=== PATIENT | male | born 1940 | race Caucasian/White ===

== ENCOUNTER 2019-12-03 19:08 | Observation (INO) | payer OTHER ==
--- OUTSIDE RECORDS SUMMARY | 2019-12-03 19:15 | XMS REPORT | Clinical Summary ---
:1940 Author Organization [facility] Address [address] [place] [address] Care Team Providers Name Role Phone Lonnie Mcgrath MD Primary Care Provider Allergies No Known Allergies Medications Medication Sig Dispensed Refills Start Date End Date Status losartan (COZAAR) 100 Take 100 mg by 0 Active MG tablet mouth daily. atorvastatin (LIPITOR) Take 40 mg by 0 Active 40 MG tablet mouth daily. allopurinol (ZYLOPRIM) Take 300 mg by 0 Active 300 MG tablet mouth daily. omega-3 acid ethyl Take 1 g by mouth 0 Active esters (LOVAZA) 1 gram 2 (two) times a capsule day. calcium Take 1 tablet by 0 Act reji carbonate-vitamin D3 mouth 2 (two) 500 mg-200 unit per times a day with tablet meals. aspirin (ECOTRIN) 81 MG Take 81 mg by 0 Active enteric coated tablet mouth daily. 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) 11/16/2019 Travel 11/03/2019 Travel 11/03/2019 Orders Only Oncology Lauren Baker MGUS (monocl onal MA gammopathy of u nknown significance) ( Primary Dx) 11/03/2019 Orders Only Oncology Lauren Baker, MGUS (monocl onal MA gammopathy of u nknown significance) ( Primary Dx) 07/29/2019 Travel 05/28/2019 Office Visit Neurology Nettie Flaherty MD Polyneuropat hy (Primary Dx); Foot drop, bila teral 05/18/2019 Office Visit Oncology Radha MGUS (monoclona l Elisha Garner MD gammopathy of unknown significance) ( Primary Dx) 05/16/2019 Telephone Radiology Vilma Benton RN 05/15/2019 Hospital Encounter Radiology Nettie Flaherty MD Polyne uropathy 05/04/2019 Office Visit Neurology Nettie Flaherty MD Polyneuropat hy (Primary Dx); Abnormal SPEP 04/21/2019 Orders Only Neurology Ileana, Elevated blood sugar MICHAEL Landers (Primary Dx) 04/20/2019 Telephone Neurology Hernán Guadarrama MD 04/09/2019 Procedure visit Neurology Nettie Flaherty MD Elevated blood sugar (Primary Dx); Hernán Guadarrama MD Foot drop, b ilateral; Neuropathy; Low vitamin B12 level 03/12/2019 Hospital Encounter Radiology Nettie Flaherty MD 03/11/2019 Office Visit Neurology Nettie Flaherty MD Foot drop, b ilateral (Primary Dx) 01/19/2019 Telephone Orthopedic Surgery Carina Becerril MA 01/01/2019 Office Visit Orthopedic Surgery Bailee Porras ra diculopathy (Primary Dx); Julien Cho MD Low back roni n, unspecified back pain laterality, unspecified chronicity, unspecified whether sciatica present; Lumbar spondylo sis after 12/02/2018 Social History Tobacco Use Types Packs/Day Years Used Date Former Smoker Cigarettes 1 15 Quit: 03/25/18 82 Smokeless Tobacco: Never Used Alcohol Use Drinks/Week oz/Week Comments Not Currently Sex Assigned at Date Recorded Not on file Job Start Date Occupation Industry Not on file Not on file Not on file Travel History Travel Start Travel End No recent travel history available. COVID-19 Exposure Response Date Recorded In the last month, have you been in contact Unable to assess 11/16/2019 2:14 PM CDT with someone who was confirmed or suspected to have Coronavirus / COVID-19? Last Filed Vital Signs Vital Sign Reading Time Taken Comments Blood Pressure 158/60 05/18/2019 11:00 AM [employer] Pulse 58 05/18/2019 11:00 AM [employer] Temperature 36.6 C (97.8 F) 05/18/2019 11:00 AM [employer] Respiratory Rate 14 05/28/2019 1:47 PM [employer] Oxygen Saturation 99% 05/18/2019 11:00 AM [employer] Inhaled Oxygen Concentration - - Weight 120 kg (264 lb 9.6 oz) 05/18/2019 11:00 AM [employer] Height 177.8 cm (5' 10") 05/18/2019 11:00 AM [employer] Body Mass Index 37.97 05/18/2019 11:00 AM [employer] Plan of Treatment Date Type Specialty Care Team Description 12/04/2019 Telephone Consult Neurology Nettie Flaherty M D [address] [facility] [address] [place], [place] [address] 05/19/2020 Telephone [place] [address] [facility] [address] [place], [place] [address] Health Maintenance Due Date Last Done Comments SHINGLES VACCINES (#1) 01/11/1992 65+ PNEUMOCOCCAL VACCINE (1 of 2 - PCV13) 2007 INFLUENZA VACCINE 12/24/2019 Procedures Procedure Name Priority Date/Time Associated Diagnosis Comme nts URINE PROTEIN Routine 11/09/2019 11:26 MGUS (monoclonal Result s for this ELECTROPHORESIS, 24 AM CDT gammopathy of unknown procedure are in HOUR significance) the results section. KAPPA LAMBDA FREE LIGHT Routine 11/09/2019 11:18 MGUS (monoclo nal Results for this CHAIN WITH RATIO AM CDT gammopathy of unknown pr ocedure are in significance) the results section. IMMUNOGLOBULIN G, A, M Routine 11/09/2019 11:18 MGUS (monoclon al Results for this AM CDT gammopathy of unknown proced ure are in significance) the results section. COMPREHENSIVE METABOLIC Routine 11/09/2019 11:18 MGUS (monoclo nal Results for this PANEL AM CDT gammopathy of unknown proced ure are in significance) the results section. CBC WITH PLATELET AND Routine 11/09/2019 11:18 MGUS (monoclona l Results for this DIFFERENTIAL AM CDT gammopathy of unknown proced ure are in significance) the results section. URINE PROTEIN Routine 05/20/2019 11:03 MGUS (monoclonal Result s for this ELECTROPHORESIS, 24 AM [employer] gammopathy of unknown procedure are in HOUR significance) the results section. IGAM Routine 05/18/2019 12:25 Results for this PM [employer] procedure are i n the results section. KAPPA LAMBDA FREE LIGHT Routine 05/18/2019 12:25 MGUS (monoclo nal Results for this CHAIN WITH RATIO PM [employer] gammopathy of unknown pr ocedure are in significance) the results section. HC COMPLETE BLD COUNT Routine 05/18/2019 12:25 MGUS (monoclona l Results for this W/AUTO DIFF PM [employer] gammopathy of unknown proced ure are in significance) the results section. IR LUMBAR PUNCTURE Routine 05/15/2019 12:55 Polyneuropathy Res ults for this PM [employer] procedure are i n the results section. CSF CELL COUNT WITH Routine 05/15/2019 12:34 Polyneuropathy Re sults for this DIFFERENTIAL PM [employer] procedure are i n the results section. PROTEIN, CSF Routine 05/15/2019 12:34 Polyneuropathy Results f or this PM [employer] procedure are i n the results section. GLUCOSE LEVEL, CSF Routine 05/15/2019 12:34 Polyneuropathy Res ults for this PM [employer] procedure are i n the results section. VDRL, CSF SCREEN Routine 05/15/2019 12:34 Polyneuropathy Resul ts for this PM [employer] procedure are i n the results section. GRAM STAIN Routine 05/15/2019 12:34 Results for this PM [employer] procedure are i n the results section. CSF CULTURE Routine 05/15/2019 12:34 Polyneuropathy Results f or this PM [employer] procedure are i n the results section. CRYPTOCOCCAL ANTIGEN Routine 05/15/2019 12:34 Polyneuropathy R esults for this SCREEN PM [employer] procedure are i n the results section. FUNGUS CULTURE Routine 05/15/2019 11:34 Polyneuropathy Results for this AM [employer] procedure are i n the results section. AFB CULTURE Routine 05/15/2019 11:34 Polyneuropathy Results f or this AM [employer] procedure are i n the results section. SERUM ELECTROPHORESIS Routine 04/14/2019 9:10 Foot drop , bilateral Results for this AM [employer] Elevated blood s ugar procedure are in Neuropathy the results Low vitamin B12 level sectio n. HOMOCYSTINE, PLASMA Routine 04/14/2019 9:10 Foot drop, bilateral Results for this AM [employer] Elevated blood s ugar procedure are in Neuropathy the results Low vitamin B12 level sectio n. VITAMIN B1 LEVEL Routine 04/14/2019 9:10 Foot drop, dejuan ateral Results for this AM [employer] Elevated blood s ugar procedure are in Neuropathy the results Low vitamin B12 level sectio n. METHYLMALONIC ACID, Routine 04/14/2019 9:10 Foot drop, bilateral Results for this SERUM AM [employer] Elevated blood s ugar procedure are in Neuropathy the results Low vitamin B12 level sectio n. VITAMIN B12 LEVEL Routine 04/14/2019 9:10 Foot drop, bi lateral Results for this AM [employer] Elevated blood s ugar procedure are in Neuropathy the results Low vitamin B12 level sectio n. HEMOGLOBIN A1C Routine 04/14/2019 9:10 Foot drop, bila teral Results for this AM [employer] Elevated blood s ugar procedure are in Neuropathy the results Low vitamin B12 level sectio n. XR LUMBAR SPINE Routine 01/01/2019 1:33 Low back pain, Result s for this COMPLETE 4+ VW PM CDT unspecified back pain proc edure are in laterality, the results unspecified section. chronicity, unspecified whether sciatica present after 12/02/2018 Results Urine protein electrophoresis, 24 hour (11/09/2019 11:26 AM CDT)Only the most recent of2 resultswithin the time period is included. Creatinine, 24 hour 1.40 0.50 - 2.15 [facility] urine g/24 h [facility] NG II Prot/creat ratio, NOTE < OR = 114 [facility] urine mg/g creat [facility] Protein/Creat Ratio NOTE < OR = 0.114 [facility] mg/mg creat [facility] NG [facility] Protein, 24 hour urine NOTE <150 mg/24 h [facility] Comment: [facility] THE PROTEIN VALUE IS LESS THAN 4 MG/DL NG II THEREFORE WE ARE UNABLE TO CALCULATE EXCRETION AND/OR CREATININE RATIO. Albumin, urine Comment: % [facility] NONE [facility] DETECTED NG II [id number], Comment: % [facility] urine NONE [facility] DETECTED NG II [id number], Comment: % [facility] urine NONE [facility] DETECTED NG II Beta globulin, urine Comment: % [facility] NONE [facility] DETECTED NG II Gamma globulin, urine Comment: % [facility] NONE [facility] DETECTED NG II Interpretation [facility] Comment: [facility] NG II Albumin and globulin are below the level of detection by agarose electrophoresis. No abnormal protein bands (Bence-Jerry s proteinuria) detected. Specimen Urine Narrative Performed At [facility] 11/09/2019 FROM [id number] [facility] URINE VOLUME: 1800/24 Resulting Agency Comment Performing Organization Information: Site ID: [id number] Name: [facility] Address: [address] [place] [phone] Director: Dr. Daniel ling Performing Organization Address [facility] Cliniccode Phone Number MICHAEL [facility] [address] [phone] Kell lambda free light chain with ratio (11/09/2019 11:18 AM CDT)Only the most recent of2 resultswithin the time period is included. Kell light 20.5 (H) 3.3 - 19.4 [facility] chain mg/L [facility] ING II Lambda light 13.8 5.7 - 26.3 [facility] chain mg/L [facility] Kell lambda 1.49 0.26 - 1.65 [facility] ratio Comment: [facility] Free kappa/lambda ratio in serum of normal individuals ING II is 0.26-1.65. Excess production of free kappa or lambd a chains can alter this ratio. Monoclonal free light chains are found in serum of patients with multiple myeloma, Waldenstrom's macroglobulinemia, mu-heavy mary ann in disease, primary amyloidosis, light chain deposition disease, monoclonal gammopathy of undetermined significance, and lymphoproliferative disorders. Measurement of free light chain concentration in serum is useful for diagnosis, prognosis, monitoring disease activity and following response to therapy of these disorders. Specimen Blood Narrative Performed At FASTING:NO [facility] COLLECTION KIT GIVEN TO PATIENT. PATIENT ADVISED TO RETURN. URINE VOLUME: NOTV FASTING: NO Resulting Agency Comment Performing Organization Information: Site ID: [id number] Name: [facility] Address: [address] [place] [phone] Director: Dr. Daniel ling Performing Organization Address [facility]/Zipcode Phone Number MICHAEL [facility] Talk[place] [phone] [place] [address] CBC with platelet and differential (11/09/2019 11:18 AM CDT)Only the most recent of2 resultswithin the time period is included. WBC 7.0 3.8 - 10.8 [facility] Thousand/uL [place] RBC 4.72 4.20 - 5.80 [facility] Million/uL [place] HGB 12.0 (L) 13.2 - 17.1 [facility] g/dL [place] HCT 37.9 (L) 38.5 - 50.0 % [facility] [place] MCV 80.3 80.0 - 100.0 fL [facility] [place] MCH 25.4 (L) 27.0 - 33.0 pg [facility] [place] MCHC 31.7 (L) 32.0 - 36.0 [facility] g/dL [place] RDW 13.9 11.0 - 15.0 % [facility] [place] Platelet count 220 140 - 400 [facility] Thousand/uL [place] MPV 9.8 7.5 - 12.5 fL [facility] [employer] [place] Neutrophils, absolute 4,207 1,500 - 7,800 [facility] cells/uL [place] Lymphocytes, absolute 2,121 850 - 3,900 [facility] cells/uL [place] Monocytes, absolute 497 200 - 950 [facility] cells/uL [place] Eosinophils, absolute 126 15 - 500 [facility] cells/uL [place] Basophils, absolute 49 0 - 200 [facility] cells/uL [place] Neutrophils 60.1 % [facility] [place] Lymphocytes 30.3 % [facility] [place] Monocytes 7.1 % [facility] [place] Eosinophils 1.8 % [facility] [place] Basophils + RC 0.7 % [facility] [place] Specimen Blood Narrative Performed At FASTING:NO [facility] COLLECTION KIT GIVEN TO PATIENT. PATIENT ADVISED TO RETURN. URINE VOLUME: NOTV FASTING: NO Resulting Agency Comment Performing Organization Information: Site ID: [id number] [facility]: [facility] Address: [address] [place] [id number] Director: Daniel Walker Performing Organization Address [facility] Cliniccoal Phone Number [employer] [place] [phone] Immunoglobulin G, A, M (11/09/2019 11:18 AM CDT) Pathologist Sig nature IgA 189 70 - 320 mg/dL [facility] IgG 1,890 (H) 600 - 1,540 mg/dL [facility] IgM 50 50 - 300 mg/dL [facility] [place] Specimen Blood Narrative Performed At FASTING:NO [facility] COLLECTION KIT GIVEN TO PATIENT. PATIENT ADVISED TO RETURN. URINE VOLUME: NOTV FASTING: NO Resulting Agency Comment Performing Organization Information: Site ID: [id number] Name: [facility] Address: [address] [place] [id number] Director: Daniel Walker Performing Organization Address [facility] Cliniccode Phone Number [employer] [address] [address] Comprehensive metabolic panel (11/09/2019 11:18 AM CDT) Glucose 122 65 - 139 [facility] Comment: mg/dL [place] Non-fasting reference interval BUN 16 7 - 25 mg/dL [facility] [place] Creatinine 0.87 0.70 - 1.18 [facility] Comment: mg/dL [place] For patients >49 years of age, the reference limit for Creatinine is approximately 13% higher for people identified as -Armenian. EGFR Non-Afr. 83 > OR = 60 [facility] Armenian mL/min/1.73m [place] 2 EGFR 96 > OR = 60 [facility] Armenian mL/min/1.73m [place] 2 BUN/creatinine NOT APPLICABLE 6 - 22 [facility] ratio (calc) [place] Sodium 141 135 - 146 [facility] mmol/L [place] Potassium 4.2 3.5 - 5.3 [facility] mmol/L [place] Chloride 107 98 - 110 [facility] mmol/L [place] CO2 27 20 - 32 [facility] mmol/L [place] Calcium 9.5 8.6 - 10.3 [facility] mg/dL [place] Protein 7.4 6.1 - 8.1 [facility] g/dL [place] Albumin, S 3.9 3.6 - 5.1 [facility] g/dL [place] Globulin, total 3.5 1.9 - 3.7 [facility] g/dL (calc) [place] Albumin/globulin 1.1 1.0 - 2.5 [facility] ratio (calc) [place] Total bilirubin 0.4 0.2 - 1.2 [facility] mg/dL [place] Alkaline 81 35 - 144 U/L [facility] phosphatase [place] AST 15 10 - 35 U/L [facility] [place] ALT 13 9 - 46 U/L [facility] [place] Specimen Blood Narrative Performed At FASTING:NO [facility] COLLECTION KIT GIVEN TO PATIENT. PATIENT ADVISED TO RETURN. URINE VOLUME: NOTV FASTING: NO Resulting Agency Comment Performing Organization Information: Site ID: [id number] Name: [facility] Address: [address] [place] [address] Director: Daniel Walker Performing Organization Address City/State/Zipcode Phone Number MICHAEL [facility] [place] [address] [place] [phone] IGAM (05/18/2019 12:25 PM [employer]ARM [employer]) Pathologist Sig nature IgG 1,826 (H) 700 - 1,600 mg/dL [facility] IgA 208 70 - 400 mg/dL [facility] IgM 51 33 - 255 mg/dL [facility] Specimen Plasma specimen Performing Organization Address City/State/Zipcode Phone Number [facility] DEPARTMENT OF PATHOLOGY AND [address] [place], [place] [address] GENOMIC MEDICINE [facility] [address] [place] [address] IR Lumbar Puncture by Radiology (05/15/2019 12:55 PM [employer]ARM [employer]) Specimen Narrative Performed At EXAMINATION: IR LUMBAR PUNCTURE [facility]IANT CLINICAL HISTORY: 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 Progressive weakness and inability to walk for 5 years . Lower extremity tingling and numbness. COMPARISON: Outside MRI exam from January 20, 2019 [facility] showed multilevel severe canal stenosis with ne rve root compression. FINDINGS: [facility] The patient was prepped in a sterile fashion in the pr one position. 1% Xylocaine was utilized for local anesthesia. Total flu oroscopy time was 0.1 minutes. Total radiation dosage was 3.5 mGy. 2 alberta ges were stored during fluoroscopy to document the level of needle placement. Utilizing fluoroscopic guidance, a 22-gauge spinal nee dle was placed into the subarachnoid space at the L1-2 level since th e cord ended above this level on the MRI exam and every other level showe d prominent narrowing of the subarachnoid space. Approximately 16 mL of cerebrospinal fluid was withdra wn and sent to the laboratory for analysis. There were no complications. The primary surgeon was Dr. Mosquera. There were no assistants. Ther e was no significant blood loss. The patient was sent to the recovery room and then discharged after he met discharge criteria. IMPRESSION: Successful fluoroscopic-guided lumbar puncture to eval uate the patient's progressive lower extremity weakness for 5 years and inability to walk. [facility]-[id number] Procedure Note Interface, Radiology Results Incoming - 05/15/2019 2:37 PM [employer]ARM [employer] EXAMINATION: IR LUMBAR PUNCTURE CLINICAL HISTORY: 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 Progressive weakness and inability to walk for 5 years. Lower extremity tingling and numbness. COMPARISON: Outside MRI exam from 2018 which showed multilevel severe canal stenosis with nerve root compression. FINDINGS: [facility] The patient was prepped in a sterile fas hion in the prone position. 1% Xylocaine was utilized for local anesthesia. Total fluoroscopy time was 0.1 minutes. Total radiation dosage was 3.5 mGy. 2 images were stored during fluoroscopy to document the level of needle placement. Utilizing fluoroscopic guidance, a 22-ga uge spinal needle was placed into the subarachnoid space at the L1-2 level since the cord ended above this level on the MRI exam and every other level showed prominent narrowing of the subarachnoid space. Approximately 16 mL of cerebrospinal flu id was withdrawn and sent to the laboratory for analysis. There were no complications. The primary surgeon was Dr. Mosquera. There were no assistants. There was no significant blood loss. The patient was sent to the recovery room and then discharged after he met discharge criteria. IMPRESSION: Successful fluoroscopic-guided lumbar pu ncture to evaluate the patient's progressive lower extremity weakness for 5 years and inability to walk. [facility]-[id number] Performing Organization Address [facility] Cliniccoal Phone Number [address] [address] Cryptococcal antigen, screen (05/15/2019 12:34 PM [employer]ARM [employer]) Pathologist [facility] Cryptococcal Ag Negative - No Cryptococcus antigen detected. JARROD PEREZ Comment: HOSPITAL Specimen Information Specimen Source: CSF (Spinal Fluid) Specimen Site: Lumbar puncture Specimen Cerebrospinal fluid - Lumbar puncture Performing Organization Address [facility] Phone Number [facility] DEPARTMENT OF PATHOLOGY AND [address] [place] [address] [phone] [address] Gram stain (05/15/2019 12:34 PM [employer]ARM [employer]) Pathologist [facility] Gram stain isolate No WBC's or organisms seen. JARROD PEREZ Comment: HOSPITAL Specimen Information Specimen Source: CSF (Spinal Fluid) Specimen Site: Lumbar puncture Specimen Cerebrospinal fluid - Lumbar puncture Performing Organization Address [facility] Phone Number [facility] DEPARTMENT OF PATHOLOGY AND [address] [place] [address] [phone] [address] CSF culture (05/15/2019 12:34 PM [employer]ARM [employer]) Pathologist [facility] CSF culture No growth after 3 days. [facility] isolate Comment: HOSPITAL Specimen Information Specimen Source: CSF (Spinal Fluid) Specimen Site: Lumbar puncture Specimen Cerebrospinal fluid - Lumbar puncture Performing Organization Address City/[facility]/Zipcode Phone Number [facility] DEPARTMENT OF PATHOLOGY AND [address] [place], [place] [address] [address] CSF cell count with differential (05/15/2019 12:34 PM [employer]ARM [employer]) Pathologist Sig nature Color, CSF Colorless [facility] Appearance, CSF Clear [facility] RBC, CSF 136 (H) 0 - 1 /CMM [facility] WBC, CSF 1 0 - 5 /CMM [facility] CSF mononuclear cell 1/CMM [facility] Specimen Cerebrospinal fluid Performing Organization Address City/[facility] Phone Number [facility] DEPARTMENT OF PATHOLOGY [phone] [place] [address] X [phone] AND [facility] [phone] [place] [address] [place] [address] VDRL, CSF screen (05/15/2019 12:34 PM [employer]ARM [employer]) Pathologist Sig nature VDRL, CSF screen Non-reactive Non-reactive [facility] Specimen Cerebrospinal fluid Performing Organization Address City/[facility]/Zipcode Phone Number [facility] DEPARTMENT OF PATHOLOGY AND [address] [place], [place] [address] [address] Protein, CSF (05/15/2019 12:34 PM [employer]ARM [employer]) Pathologist Sig nature Protein, CSF 42 15 - 45 mg/dL [facility] Specimen Cerebrospinal fluid Performing Organization Address City/[facility]/Zipcode Phone Number [facility] DEPARTMENT OF PATHOLOGY [phone] [place] [address]. [facility] X [phone] AND [facility] [phone] [place] [address] X [phone] [facility] Glucose level, CSF (05/15/2019 12:34 PM [employer]ARM [employer]) Pathologist Sig nature Glucose, CSF 81 (H) 40 - 70 mg/dL [facility] Specimen Cerebrospinal fluid Performing Organization Address City/[facility]/Zipcode Phone Number [facility] DEPARTMENT OF PATHOLOGY [phone] [place] [address] [phone] AND [facility] [address] [facility] [place] [phone] HOSPITAL AFB culture (05/15/2019 11:34 AM FARM CONTRACTOR) AFB culture No growth after 6 weeks of incubation. RENE SHANKS CATHOL[facility] isolate Comment: HOSPITAL Specimen Information Specimen Source: CSF (Spinal Fluid) Specimen Site: Lumbar puncture Specimen Cerebrospinal fluid - Lumbar puncture Performing Organization Address [facility] Phone Number [facility] DEPARTMENT OF PATHOLOGY AND [address] [place] [phone] Fungus culture (05/15/2019 11:34 AM FARM CONTRACTOR) Fungus culture No growth after 4 weeks of incubation. [facility] isolate Comment: HOSPITAL Specimen Information Specimen Source: CSF (Spinal Fluid) Specimen Site: Lumbar puncture Specimen Cerebrospinal fluid - Lumbar puncture Performing Organization Address [facility] Phone Number [facility] DEPARTMENT OF PATHOLOGY AND [address] [place] [phone] Homocystine, plasma (04/14/2019 9:10 AM FARM CONTRACTOR) Homocysteine 7.9 <11.4 umol/L [facility] Comment: [facility] Homocysteine is increased by functional deficiency of G II folate or vitamin B12. Testing for methylmalonic aci d differentiates between these deficiencies. Other cau ses of increased homocysteine include renal failure, folat e antagonists such as methotrexate and phenytoin, and exposure to nitrous oxide. Specimen Blood Narrative Performed At FASTING:YES [facility] FASTING: YES Resulting Agency Comment Performing Organization Information: Site ID: [id number] Name: [facility] Address: [address] [place] [phone] Director: Dr. Daniel ling Performing Organization Address City/[facility] Phone Number [facility] [employer] [address] [place] [address] Methylmalonic acid, serum (04/14/2019 9:10 AM FARM CONTRACTOR) Methylmalonic acid 141 87 - 318 [facility] Comment: nmol/L [facility] This test was developed and its analytical performance characteristics have been determined by [facility]. It has not been cleared or approved by FDA. This assay has been valida haseeb pursuant to the CLIA regulations and is used for clini claudia purposes. Specimen Blood Narrative Performed At FASTING:YES [facility] FASTING: YES Resulting Agency Comment Performing Organization Information: Site ID: [id number] Name: [facility], Address: [address] [place] [id number] Director: Madison Clark MD,PhD,MB A Performing Organization Address City/[facility] Phone Number [employer] [address] [place] [phone] [facility] Vitamin B1 level (04/14/2019 9:10 AM FARM CONTRACTOR) Vitamin B1 27 8 - 30 nmol/L [facility] [employer] Comment: [place] Vitamin supplementation within 24 hours prior to blood draw may affect the accuracy of results. This test was developed and its analytical performance characteristics have been determined by [employer]. It has not been cleared or approved by [facility] FDA. This assay has been validated pursuant to the CLI A regulations and is used for clinical purposes. Specimen Blood Narrative Performed At FASTING:YES [facility] FASTING: YES Resulting Agency Comment Performing Organization Information: Site ID: [id number] Name: [facility] Address: [address] [place] [address] Director: Isaias Barnett M.D., Ph. 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) Protein 7.4 6.1 - 8.1 g/dL [facility] ING II Albumin, S 4.0 3.8 - 4.8 g/dL [facility] Jzfpz-9-qbsvxhlg 0.3 0.2 - 0.3 g/dL [facility] Ktvoi-7-jhosuyxx 0.7 0.5 - 0.9 g/dL [facility] Beta-1 globulin 0.5 0.4 - 0.6 g/dL [facility] Beta-2 globulin 0.3 0.2 - 0.5 g/dL [facility] Gamma, CSF 1.6 0.8 - 1.7 g/dL [facility] Abnormal protein 0.6 (H) NONE DETECTED [facility] band 1 g/dL [facility] ING II Abnormal protein 0.7 (H) NONE DETECTED [facility] band 2 g/dL [facility] ING II Interpretation [facility] Comment: [facility] Evaluation reveals two restricted bands (M-spikes) ING II migrating in the gamma globulin region. Consider immunofixation analysis if indicated. Specimen Blood Narrative Performed At FASTING:YES [facility] FASTING: YES Resulting Agency Comment Performing Organization Information: Site ID: [id number] Name: [facility] Address: [address] [place] [phone] Director: Dr. Daniel ling Performing Organization Address 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 For someone with known diabetes, a value <7% indicates that their diabetes is well controlled and a value greater than or equal to 7% indicates suboptimal control. A1c targets should be individualized based on duration of diabetes, age, comorbid conditions, and other considerations. Currently, no consensus exists regarding use of hemoglobin A1c for diagnosis of diabetes for children. Specimen Blood Narrative Performed At FASTING:YES [facility] FASTING: YES Resulting Agency Comment Performing Organization Information: Site ID: [id number] Name: [facility] Address: [address] [place] [phone] Director: Daniel Walker Performing Organization Address City/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 Sig nature Vitamin B12 559 200 - 1,100 pg/mL [facility] ON Specimen Blood Narrative Performed At FASTING:YES [facility] FASTING: YES Resulting Agency Comment Performing Organization Information: Site ID: DOT Name: [facility] Address: [address] [place] [address] Director: Daniel Walker Performing Organization Address City/State/Zipcode Phone Number MICHAEL [facility] [facility] [place] [address] [place] [address] XR Lumbar Spine Complete 4+ Vw (01/01/2019 1:33 PM CDT) Specimen Narrative Performed At This result has an attachment that is no t available. 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 Bridging osteophytes throughout the thoracolumbar supe rior lumbar spine. 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 No fractures bone erosions. No dynamic instability f lexion-extension. Performing Organization Address City/State/Zipcode Phone Number [facility] [address] [place] [address] after 12/02/2018 Advance Directives For more information, please contact: [phone] Type Date Recorded Patient Rewriter Explanati on Advance Directives, Living Will and Medical Power of [place] Maker
--- OUTSIDE RECORDS SUMMARY | 2019-12-03 19:16 | XMS REPORT | Continuity of Care Document ---
:1940 Author Organization [facility] t Address [address] [place] [address] Care Team Providers Name Role Phone Ramila SEWELL, Lonnie Primary Care Physician Chavez SEWELL, Elisha Garner Attending Clinician Samuel RODRIGUEZ Attending Clinician Unavailable Krystina SEWELL Attending Clinician Serenity LEMON Attending Clinician Unavailable Ileana RODRIGUEZ Attending Clinician Unavailable Chiara SEWELL Attending Clinician Jone RODRIGUEZ Attending Clinician Unavailable Marquis Porras MD Attending Clinician Payers Payer Name Policy Type Policy Number Effective Date Expiration Date S concepcion AETNA xxxxxxxx 2013 [place] MEDICAREAETNA 00:00:00 [employer] MEDICARE HMO/PP[facility] 4-PresentHMO Problems This patient has no known problems. Allergies, Adverse Reactions, Alerts This patient has no known allergies or adverse reactions. Social History Social Habit Start Date Stop Date Quantity Comments Source Sex Assigned At [place] M ethodist Exposure to Unable to assess Jarrod Ortiz SARS-CoV-2 (event) Cigarettes smoked 2019-05-28 2019-05-28 Jarrod Ortiz current (pack per 00:00:00 00:00:00 day) - Reported Cigarette 2019-05-28 2019-05-28 Jarrod Weiner ist pack-years 00:00:00 00:00:00 Alcohol intake 2019-05-28 2019-05-28 Ex-drinker [facility]odist 00:00:00 00:00:00 (finding) History of tobacco 1981-03-25 Current smoker [place] use 00:00:00 Smoking Status Start Date Stop Date Source Former smoker 2019-05-28 00:00:00 2019-05-28 00:00:00 Jarrod Ortiz Medications Ordered Filled Start Stop Current Ordering Indication Dosage Frequency Signature Comments Components Source Medication Medication Date Date Medication? Clinician (SIG) Name Name losartan 2020-0 Yes 100mg QD Take 100 [place] (COZAAR) 3-05 mg by Methodi 100 MG 13:46: mouth st tablet 57 daily. atorvastati 2020-0 Yes 40mg QD Take 40 mg Garay n (LIPITOR) 3-05 by mouth Meth robert 40 MG 13:46: daily. st tablet 57 allopurinol 2020-0 Yes 300mg QD Take 300 [place] (ZYLOPRIM) 3-05 mg by Methodi 300 MG 13:46: mouth st tablet 57 daily. omega-3 2020-0 Yes 1g Q.5D Take 1 g [place] acid ethyl 3-05 by mouth 2 Met hodi esters 13:46: (two) st (LOVAZA) 1 57 times a gram day. capsule calcium 2020-0 Yes 1{tbl} Q.5D Take 1 [place] carbonate-v 3-05 tablet by Met hodi itamin D3 13:46: mouth 2 st 500 mg-200 57 (two) unit per times a tablet day with meals. aspirin 2020-0 Yes 81mg QD Take 81 mg [place] (ECOTRIN) 3-05 by mouth Method i 81 MG 13:46: daily. st enteric 57 coated tablet Vital Signs Vital Name Observation Time Observation Value Comments Source Respiratory rate 2019-05-28 13:47:00 14 /min [place] Systolic blood 2019-05-18 11:00:00 158 mm[Hg] [place] pressure Diastolic blood 2019-05-18 11:00:00 60 mm[Hg] [place] pressure Heart rate 2019-05-18 11:00:00 58 /min Jarrod Ortiz Body temperature 2019-05-18 11:00:00 36.56 Jade Joyce Ortiz Body height 2019-05-18 11:00:00 177.8 cm Jarrod Ortiz Body weight 2019-05-18 11:00:00 120.022 kg Jarrod Ortiz BMI 2019-05-18 11:00:00 37.97 kg/m2 Jarrod Ortiz Oxygen saturation in 2019-05-18 11:00:00 99 /min Jarrod Ortiz Arterial blood by Pulse oximetry Procedures Procedure Date / Time Performing Clinician Source Performed URINE PROTEIN 2019-11-09 11:26:00 Elisha Garcia ELECTROPHORESIS, 24 HOUR CBC WITH PLATELET AND 2019-11-09 11:18:00 Elisha Garcia DIFFERENTIAL COMPREHENSIVE METABOLIC 2019-11-09 11:18:00 Elisha Garcia PANEL IMMUNOGLOBULIN G, A, M 2019-11-09 11:18:00 Elisha Garcia KAPPA LAMBDA FREE LIGHT 2019-11-09 11:18:00 Elisha Garcia CHAIN WITH RATIO URINE PROTEIN 2019-05-20 11:03:00 Elisha Garcia ELECTROPHORESIS, 24 HOUR HC COMPLETE BLD COUNT 2019-05-18 12:25:00 Elisha Garcia W/AUTO DIFF KAPPA LAMBDA FREE LIGHT 2019-05-18 12:25:00 Elisha Garcia CHAIN WITH RATIO IGAM 2019-05-18 12:25:00 Elisha Garcia IR LUMBAR PUNCTURE 2019-05-15 12:55:19 Bg [place] ethodist CRYPTOCOCCAL ANTIGEN 2019-05-15 12:34:00 Bg Mireles SCREEN CSF CULTURE 2019-05-15 12:34:00 Bg Mireles Meth odist GRAM STAIN 2019-05-15 12:34:00 Bg M[place] Meth odist VDRL, CSF SCREEN 2019-05-15 12:34:00 Bg Mireles Met hodzachery GLUCOSE LEVEL, CSF 2019-05-15 12:34:00 Bg [place] ethodist PROTEIN, CSF 2019-05-15 12:34:00 Bg Mireles odzachery CSF CELL COUNT WITH 2019-05-15 12:34:00 Bg Mireles [employer] Witness DIFFERENTIAL AFB CULTURE 2019-05-15 11:34:00 Bg Mireles Meth odist FUNGUS CULTURE 2019-05-15 11:34:00 Bg Mireles odzachery HEMOGLOBIN A1C 2019-04-14 09:10:00 Hernán Guadarrama Meth odist VITAMIN B12 LEVEL 2019-04-14 09:10:00 Hernán Guadarrama Me thodist METHYLMALONIC ACID, SERUM 2019-04-14 09:10:00 GuadarramaHernán [employer] Witness VITAMIN B1 LEVEL 2019-04-14 09:10:00 Hernán Guadarrama hodzachery HOMOCYSTINE, PLASMA 2019-04-14 09:10:00 ChiaraHernán Jarrod Ortiz SERUM ELECTROPHORESIS 2019-04-14 09:10:00 Hernán Guadarrama Brad Ortiz XR LUMBAR SPINE COMPLETE 2019-01-01 13:33:24 Julien Porras 4+ VW Marquis Plan of Care Planned Activity Planned Date Details Comments Source Future Scheduled 2019-12-24 INFLUENZA VACCINE Brad Ortiz Test 00:00:00 [code = INFLUENZA VACCINE] Future Scheduled 2007 65+ PNEUMOCOCCAL Jarrod Ortiz Test 00:00:00 VACCINE (1 of 2 - PCV13) [code = 65+ PNEUMOCOCCAL VACCINE (1 of 2 - PCV13)] Future Scheduled 1992-01-11 SHINGLES VACCINES (#1) H huey Ortiz Test 00:00:00 [code = SHINGLES VACCINES (#1)] Encounters Start End Encounter Admission Attending Care Care Encounter Source Date/Time Date/Time Type Type Clinicians Facility Department ID 2019-11-16 2019-11-16 Outpatient CHAVEZ [facility] [id number] [place] 00:00:00 00:00:[address] [place] [address] 2019-05-28 2019-05-28 Outpatient BG MIRELES [facility] [id number] [place] 00:00:00 00:00:[address] 2019-05-18 2019-05-18 Outpatient CHAVEZ [facility] [id number] [place] 00:00:00 00:00:00 [place] [address] 2019-05-15 2019-05-15 Outpatient BG MIRELES [facility] [id number] [place] 00:00:00 00:00:[address] Results Test Description Test Time Test Comments Results Result Comments Source Comprehensive metabolic panel 2019-11-11 10:55:00 Test Item Value Reference Range Interpretation Comme nts Glucose (test code = 122 mg/dL 65-139 Non-fasting 2345-7) reference inter jeanette BUN (test code = 16 mg/dL 10-16 3094-0) Creatinine (test code 0.87 mg/dL 0.7-1.18 For pa tients >49 years of = 2160-0) age, the refere nce limitfor Creati nine is approximately 1 3% higher for peopleident ified as -Padmini n. EGFR Non-Afr. 83 > OR = 60 [place] (test code = mL/min/1.73m2 2775) EGFR 96 > OR = 60 (test code = 64164-9) mL/min/1.73m2 BUN/creatinine ratio NOT APPLICABLE 6- (calc) (test code = 3097-3) Sodium (test code = 141 mmol/L 292-590 3388-2) Potassium (test code 4.2 mmol/L 3.5-5.3 = 2823-3) Chloride (test code = 107 mmol/L 98-110 2074-0) CO2 (test code = 27 mmol/L -32 2027-9) Calcium (test code = 9.5 mg/dL 8.6-10.3 79995-3) Protein (test code = 7.4 g/dL 6.1-8.1 2885-2) Albumin, S (test code 3.9 g/dL 3.6-5.1 = 1751-7) Globulin, total (test 3.5 1.9- 3.7 g/dL code = 92956-4) (calc) Albumin/globulin 1.1 1.0- 2.5 (calc) ratio (test code = 1759-0) Total bilirubin (test 0.4 mg/dL 0.2-1.2 code = 1974-2) Alkaline phosphatase 81 U/L 35-144 (test code = 6768-6) AST (test code = 15 U/L 10-35 1920-8) ALT (test code = 13 U/L 9-46 1742-6) LORI (test code = LORI) FASTING:NOCOLLECTION KIT GIVEN TO PATIENT. PATIENT ADVISED TO RETURN.URINE VOLUME: NOTVFASTING: NO RAC (test code = RAC) Performing Organization Information: Site ID: DOT Name: [facility] Address: [address] [place] [phone] Director: Daniel Walker [place] MethodistImmunoglobulin G, A, [id number] 10:55:00 Test Item Value Reference Range Interpretation Comments IgA (test code = 2458-8) 189 mg/dL 70-320 IgG (test code = 2465-3) 1890 mg/dL 600-1540 H IgM (test code = 2472-9) 50 mg/dL 50-300 LORI (test code = LORI) FASTING:NOCOLLECTION KIT GIVEN TO PATIENT. PATIENT ADVISED TO RETURN.URINE VOLUME: NOTVFASTING: NO RAC (test code = RAC) Performing Organization Information: Site ID: RGA Name: [facility] Address: [address] [place] [phone] Director: Daniel Walker Lab Interpretation (test Abnormal code = 42533-9) [place] MethodistCBC with platelet and [id number] 10:55:00 Test Item Value Reference Range Interpretation Comments WBC (test code = 7.0 3.8- 10.8 6690-2) Thousand/uL RBC (test code = 789-8) 4.72 4.20- 5.80 Million/uL HGB (test code = 718-7) 12.0 g/dL 13.2-17.1 L HCT (test code = 37.9 % 38.5-50 L 4544-3) MCV (test code = 787-2) 80.3 fL 80-100 MCH (test code = 785-6) 25.4 pg 27-33 L MCHC (test code = 31.7 g/dL 32-36 L 786-4) RDW (test code = 788-0) 13.9 % 11-15 Platelet count (test 220 140- 400 code = 777-3) Thousand/uL MPV (test code = 776-5) 9.8 fL 7.5-12.5 Neutrophils, absolute 4207 1,500 - 7,800 (test code = 751-8) cells/uL Lymphocytes, absolute 2121 850- 3,900 (test code = 731-0) cells/uL Monocytes, absolute 497 200- 950 cells/uL (test code = 742-7) Eosinophils, absolute 126 15- 500 cells/uL (test code = 711-2) Basophils, absolute 49 0- 200 cells/uL (test code = 704-7) Neutrophils (test code 60.1 % = 770-8) Lymphocytes (test code 30.3 % = 736-9) Monocytes (test code = 7.1 % 5905-5) Eosinophils (test code 1.8 % = 713-8) Basophils + RC (test 0.7 % code = 706-2) LORI (test code = LORI) FASTING:NOCOLLECTION KIT GIVEN TO PATIENT. PATIENT ADVISED TO RETURN.URINE VOLUME: NOTVFASTING: NO RAC (test code = RAC) Performing Organization Information: Site ID: RGA Name: [facility] Address: [address] [place] [address] Director: Daniel Walker Lab Interpretation Abnormal (test code = 83595-1) [place] Dalila lambda free light chain with [id number] 10:55:00 Test Item Value Reference Interpretation Comments Range [place] light chain 20.5 mg/L 3.3-19.4 H (test code = 15141-7) Lambda light chain 13.8 mg/L 5.7-26.3 (test code = 58650-4) [place] lambda ratio 1.49 0.26-1.65 [place] a/lambda ratio (test code = in serum of [facility] 12820-9) individualsis 0.26-1.65. Exce ss production of f ree kappa or lambda chains can alter this ratio. Monoclonal free lightchains are found in serum of pat ients with multiplemy eloma, Waldenstrom's macroglobulinem ia, mu-heavy chaind isease, primary amyloid osis, light chain depositiondisea se, monoclonal gamm opathy of undeterminedsig nificanc e, and lymphoprolifera tive disorders.Measu rement of free light c [place] concentration i n serumis useful for diagnosis, prog nosis, monitoring diseaseactivity and following respo nse to therapy of thesedisorders. LORI (test code = FASTING:NOCOLLEC LORI) TION KIT GIVEN TO PATIENT. PATIENT ADVISED TO RETURN.URINE VOLUME: NOTVFASTING: NO RAC (test code = Performing RAC) Organization Information: Site ID: IG Name: [facility] Address: [address] [place] [address] Director: Dr. Daniel Walker Lab Interpretation Abnormal (test code = 03998-9) [place] MethodistUrine protein electrophoresis, 24 [id number] 02:09:00 Test Item Value Reference Interpretation Comments Range Creatinine, 24 hour 1.40 0.50- 2.15 urine (test code = g/24 h 2162-6) Protein/Creat Ratio NOTE < OR = 0.114 (test code = mg/mg creat 41384-3) Protein, 24 hour NOTE <150 mg/24 h THE PROTEIN VALUE IS urine (test code = LESS THAN 4 2889-4) MG/DLTHEREFORE WE ARE UNABLE TO CALCULATEEXCRET ION AND/OR CREATINI NE RATIO. Albumin, urine % (test code = NONE DETECTED 68958-0) Cqoet-1-lesgkixr, % urine (test code = NONE DETE CTED 45975-0) Kwcih-6-iuibfdvx, % urine (test code = NONE DETE CTED 40097-5) Beta globulin, % urine (test code = NONE DETE CTED 84919-8) Gamma globulin, % urine (test code = NONE DETE CTED 91917-3) Interpretation Albumin and globulin (test code = [place] [address]-5) detection by agaroseelectrop horesis . No abnormal p rotein bands (Bence-Jonespro teinuri a) detected. LORI (test code = SPLIT 11/09/2019 LORI) FROM [id number] VOLUME: 1800/24 RAC (test code = Performing RAC) Organization Information: Site ID: IG Name: [facility] Address: [address] [place] [phone] Director: Dr. Daniel Walker [place] MethodistAFB [id number] 00:13:36 Test Item Value Reference Range Interpretation Comments AFB culture No growth Specimen isolate (test after 6 weeks InformationSp ecimen code = 543-9) of Source: CSF (S bonnie incubation. Fluid)Specimen Site: Lumbar puncture [place] MethodistFungus [id number] 00:15:17 Test Item Value Reference Range Interpretation Comments Fungus culture No growth Specimen isolate (test after 4 weeks InformationSp ecimen code = 1441) of Source: CSF (Sp inal incubation. Fluid)Specimen Site: Lumbar puncture [place] Jehovah'S WitnessCSF [id number] 22:36:07 Test Item Value Reference Range Interpretation Comments CSF culture No growth Specimen isolate (test after 3 days. InformationSp ecimen code = 606-4) Source: CSF (S bonnie Fluid)Specimen Site: Lumbar puncture Jarrod OrtizCryptococcal antigen, [id number] 21:28:20 Test Item Value Reference Interpretation Comments Range Cryptococcal Ag Negative - No Specimen (test code = Cryptococcus InformationSpec imen 9820-2) antigen detected. Source: CS F (Spinal Fluid)Specimen Site: Lumbar puncture Garay MethodzacheryGram [id number] 22:41:41 Test Item Value Reference Range Interpretation Comments Gram stain No WBC's or Specimen isolate (test organisms seen. Information Specimen code = 1469) Source: CSF (Sp inal Fluid)Specimen Site: Lumbar puncture Garay MethodistVDRL, CSF [id number] 21:13:57 Test Item Value Reference Range Interpretation Comments VDRL, CSF screen (test code = Non-reactive Non-reactive 3046) [place] MethodzacheryProtein, [id number] 16:24:05 Test Item Value Reference Range Interpretation Comments Protein, CSF (test code = 2880-3) 42 mg/dL 15-45 [place] MethodistGlucose level, [id number] 15:59:25 Test Item Value Reference Range Interpretation Comments Glucose, CSF (test code = 2342-4) 81 mg/dL 40-70 H Lab Interpretation (test code = Abnormal 21417-0) [place] MethodistIR Lumbar Puncture by [id number] 14:34:51Hm Interface, Radiology Results - 05/15/2019 2:37 PM CSTEXAMINATION: IR LUMBAR PUNCTURECLINICAL HISTORY: 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 Progressive weakness and inability to walk for 5 years. 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 1% Xylocaine was utilized for local anesthesia. Total fluoroscopy time was 0.1 minutes. Total radiation dosage was 3.5 mGy. 2 images were stored during fluoroscopy to document the level of needle placement.Utilizing fluoroscopic guidance, a 22-gauge spinal needle was placed into the subarachnoid space at the L1-2 level since the cord ended above this level on the MRI exam and every other level showed prominent narrowing of the subarachnoid space. Approximately 16 mL of cerebrospinal fluid was withdrawn and sent to the laboratory for analysis. There were no complications. The primary s urgeon was Dr. Mosquera. There were no assistants. There was no significant blood loss. The patient was sent to the recovery room and then discharged after he met discharge criteria.IMPRESSION:Successfulfluoroscopic-guided lumbar puncture to evaluate the patient's progressive lower extremity weakness for 5 years and inability to walk.[facility] [id number] MethodistCSF cell count with [id number] 14:11:14 Test Item Value Reference Range Interpretation Comments Color, CSF (test code = 35762-9) Colorless Appearance, CSF (test code = Clear 83417-4) RBC, CSF (test code = 14693-2) 136 0- 1 /CMM H WBC, CSF (test code = 52393-4) 1 0- 5 /CMM CSF mononuclear cell (test code = 1/CMM 34276-4) Lab Interpretation (test code = Abnormal 62485-7) [place] Methoddzilth-na-o-dith-hle health centerVitamin B12 [id number] 20:00:00 Test Item Value Reference Range Interpretation Comments Vitamin B12 (test 559 pg/mL 200-1100 code = 2132-9) LORI (test code = FASTING:YESFASTING: YES LORI) RAC (test code = Performing Organization RAC) Information: Site ID: RGA Name: [facility] Address: [address] [place] [phone] Director: Daniel Walker [place] Jehovah'S WitnessHemoglobin [id number] 20:00:00 Test Item Value Reference Interpretation Comments Range Hemoglobin A1C (test 7.3 <5.7 % of H For yunier eone without code = 4548-4) total Hgb known diabete s, a hemoglobin A1cv alue of 6.5% or grea ter indicates that they may have diabet es and this should be confirmed with a follow-up test. For someone with kn own diabetes, a jeanette ue <7% indicates t hat their diabetes is well controlled and a value greater than or equal t o 7% indicates suboptimal cont rol. A1c targets rodrigue uld be individualiz ed based on durati on of diabetes, ag e, comorbid conditions, and other considerations. Currently, no consensus exist s regarding use ofhemoglobin A1 c for diagnosis o f diabetes for children. LORI (test code = FASTING:YESFASTIN LORI) G: YES RAC (test code = Performing RAC) Organization Information: Site ID: RGA Name: [facility] Address: [address] [place] [phone] Director: Daniel Walker Lab Interpretation Abnormal (test code = 49494-6) [facility] [id number] 20:00:00 Test Item Value Reference Interpretation Comments Range Protein (test code = 7.4 g/dL 6.1-8.1 2885-2) Albumin, S (test 4.0 g/dL 3.8-4.8 code = 2862-1) Qyrzn-7-kqlqwjpw 0.3 g/dL 0.2-0.3 (test code = 2865-4) Dhqpp-9-cotjlltn 0.7 g/dL 0.5-0.9 (test code = 2868-8) Beta-1 globulin 0.5 g/dL 0.4-0.6 (test code = 11232-4) Beta-2 globulin 0.3 g/dL 0.2-0.5 (test code = 81923-0) Gamma, CSF (test 1.6 g/dL 0.8-1.7 code = 2874-6) Abnormal protein 0.6 g/dL NONE DETECTED H band 1 (test code = 39021-4) Abnormal protein 0.7 g/dL NONE DETECTED H band 2 (test code = 50124-2) Interpretation (test Evaluat ion reveals code = 30311-6) two restrict ed bands (M-spikes)migra ting in the gamma globulin region . Consider immunofixation analysis if indicated. LORI (test code = FASTING:YESFASTIN LORI) G: YES RAC (test code = Performing RAC) Organization Information: Site ID: IG Name: [facility] Address: [address] [place] [address] Director: Dr. Daniel Walker Lab Interpretation Abnormal (test code = 52125-3) [place] MethodistVitamin B1 [id number] 20:00:00 Test Item Value Reference Range Interpretation Comments Vitamin B1 27 nmol/L 8-30 Vitamin (test code = supplementation 40201-7) within 24 hours prior to blood draw m ay affect the accu racy of results. This test was develo ped and its analyti claudia performance characteristics have been determined by [facility]. It has not been cl eared or approved by theFDA. This as say has been valida haseeb pursuant to the CLIA regulations and is used for clinic al purposes. LORI (test code FASTING:YESFASTING: = LORI) YES RAC (test code Performing = RAC) Organization Information: Site ID: SLI Name: [facility] Address: [address] [place] [address] Director: Isaias Barnett M.D., Ph.D [place] MethodistMethylmalonic acid, [id number] 20:00:00 Test Item Value Reference Interpretation Comments Range Methylmalonic 141 nmol/L 87-318 This test was developed and acid (test code its analytic al = 16923-1) performancechar acteristics have been deter mined by [facility]. It has not beencleared or approved by FDA. This assay has been validatedpursua nt to the CLIA regulation s and is used for clinicalpur poses. LORI (test code = FASTING:YESFAST LORI) ING: YES RAC (test code = Performing RAC) Organization Information: Site ID: EZ Name: [facility], Address: [address] [place] [address] Director: Madison Clark MD,PhD,OSBALDO [place] MethodistHomocystine, [id number] 20:00:00 Test Item Value Reference Range Interpretation Comments Homocysteine (test 7.9 umol/L <11.4 Homocyste ine is code = 75911-3) increased by functional deficiency of folate or vitam in B12. Testing f or methylmalonic a teresa differentiates between these deficiencies. Other causes of increased homocysteine include renal failure, folate antagonists suc h as methotrexate an d phenytoin, and exposure to nit akua oxide. LORI (test code = FASTING:YESFASTING LORI) : YES RAC (test code = Performing RAC) Organization Information: Site ID: IG Name: [facility] Address: [address] [place] [phone] Director: Dr. Daniel Ortiz
[2019-12-03 20:08] LABS: Absolute Lymphocytes (CBC) 1.5 K/uL (0.7-4.9); Basophils % 0.4 % (0-1.3); Hematocrit 34.8 % (39.6-49.0); Lymphocytes % 22.3 % (15.3-44.8); MPV 8.1 fL (7.6-11.3); RBC Red Blood Cell Count 4.31 M/uL (4.33-5.43)
[2019-12-03] MEDS ORDERED: ONDANSETRON 4 MG/2 ML VIAL ONE (20:12)
[2019-12-03 20:14] LABS: Protime INR 1.03
[2019-12-03 20:32] LABS: ALT/SGPT 21 U/L (12-78); AST/SGOT 17 U/L (15-37); Albumin 3.3 g/dL (3.4-5.0); Alkaline Phosphatase 91 U/L (45-117); BUN Blood Urea Nitrogen 14 mg/dL (7-18); Bicarbonate 26 mmol/L (21-32); Bilirubin Direct < 0.1 mg/dL (0-0.2); Bilirubin Total 0.3 mg/dL (0.2-1.0); Glucose Level 207 mg/dL (74-106); Lipase 90 U/L (73-393); Magnesium 2.2 mg/dL (1.8-2.4); NT PRO-BNP 96 pg/mL (<450); Potassium 3.9 mmol/L (3.5-5.1); Protein, Total 7.4 g/dL (6.4-8.2); Sodium Level 141 mmol/L (136-145); Troponin (Emerg Dept Use Only) < 0.02 ng/mL (0.0-0.045)
--- NOTE | 2019-12-03 20:34 | RAD REPORT ---
EXAM DESCRIPTION: RAD - Chest Single View - 12/03/2019 8:18 pm CLINICAL HISTORY: Dizziness, shortness of breath, hypertension COMPARISON: None TECHNIQUE: AP portable chest image was obtained 12/03/2019 8:18 pm . FINDINGS: Lungs are clear. Heart and vasculature are normal. No measurable pleural effusion and no p neumothorax. No acute bony abnormality seen. No acute aortic findings suspected. IMPRESSION: No acute cardiopulmonary process.
--- NOTE | 2019-12-03 21:02 | RAD REPORT ---
EXAM DESCRIPTION: CT - Head Brain Wo Cont - 12/03/2019 8:55 pm CLINICAL HISTORY: DIZZINESS, lightheaded, hypertension COMPARISON: No comparisons TECHNIQUE: Axial 5 mm thick images of the head were obtained without IV contrast. All CT scans are performed using dose optimization technique as appropriate and may include automated exposure control or mA/KV adjustment according to patient size. FINDINGS: No intracranial hemorrhage, mass, edema or shift of mid-line structures. No acute infarcti on changes seen. Mild atrophy changes are present. Physiologic calcifications are present near the ba marylin ganglia. Atrophy appears to be minimal. Ventricles are in proportion to any volume loss. Mastoid air cells and visualized portions of the paranasal sinuses are clear. No acute bony findings. IMPRESSION: Negative non-contrast CT head examination for acute finding.
--- NOTE | 2019-12-03 22:00 | ER ---
Nurse's Notes [facility] Name: Greg Singleton Jr Age: 79 yrs Sex: Male : 1940 Arrival Date: 12/03/2019 Time: 19:17 Bed 4 Private MD: Lonnie Mcgrath V Diagnosis: Dizziness;Atrial Fibrillation with slow ventricular response Presentation: 12/02 19:40 Chief complaint: Patient states: Nausea started in the afternoon today. Denies ca1 abdominal pain and vomiting. Lightheaded and dizzy at about 1600. Coronavirus screen: Client denies travel out of the [place] in the last 14 days. At this time, the client does not indicate any symptoms associated with coronavirus-19. Ebola Screen: Patient negative for fever greater than or equal to 101.5 degrees Fahrenheit, and additional compatible Ebola Virus Disease symptoms Patient denies exposure to infectious person. Patient denies travel to an Ebola-affected area in the 21 days before illness onset. No symptoms or risks identified at this time. Initial Sepsis Screen: Does the patient meet any 2 criteria? No. Patient's initial sepsis screen is negative. Does the patient have a suspected source of infection? No. Patient's initial sepsis screen is negative. Risk Assessment: Do you want to hurt yourself or someone else? Patient reports no desire to harm self or others. Onset of symptoms was December 03, 2019. 19:40 Method Of Arrival: Wheelchair ca1 19:40 Acuity: BUD 3 ca1 Triage Assessment: 20:05 General: Appears in no apparent distress. Behavior is calm, cooperative, appropriate ea for age. Pain: Denies pain. Neuro: Level of Consciousness is awake, alert, obeys commands, Oriented to person, place, time, situation. Cardiovascular: Patient's skin is warm and dry. Respiratory: Airway is patent Respiratory effort is even, unlabored, Respiratory pattern is regular, symmetrical. GI: Abdomen is round. Derm: Skin is pink, warm \T\ dry. Historical: - Allergies: 19:45 No Known Allergies; ca1 - Home Meds: 19:52 Allopurinol Oral [Active]; losartan oral oral [Active]; pravastatin oral oral [Active]; ca1 - PMHx: 19:45 Hypertension; Diabetes - NIDDM; High Cholesterol; Gout; ca1 - PSHx: 19:45 Appendectomy; ca1 - Immunization history:: Adult Immunizations up to date. - Social history:: Smoking status: Patient denies any tobacco usage or history of. Screenin:52 Abuse screen: Denies threats or abuse. Nutritional screening: No deficits noted. ea Tuberculosis screening: No symptoms or risk factors identified. Fall Risk None identified. Assessment: 19:49 Reassessment: : [phone]. ca1 20:06 Reassessment: see triage assessment. ea 21:11 Reassessment: Patient and/or family updated on plan of care and expected duration. Pain ea level reassessed. Patient is alert, oriented x 3, equal unlabored respirations, skin warm/dry/pink. 21:17 Reassessment: PATIENT IS RUNNING AF IN SVR, WITH HR OF 38. DENIES ANY SOB OR CHEST rv PAIN. BLOOD PRESSURE IS 127/45. DIZZINESS AND NAUSEA IS GONE. REFERRED TO DR ACEVES. NO NEW ORDERS AT THIS TIME. PLAN TO SPEAK WITH THE PRIMARY CARE DR. 21:34 Reassessment: MS ASHRAF UPDATED ON THE STATUS OF THE PATIENT. rv 22:11 Reassessment: Patient and/or family updated on plan of care and expected duration. Pain ea level reassessed. Patient is alert, oriented x 3, equal unlabored respirations, skin warm/dry/pink. 22:58 GI: Bowel sounds present X 4 quads. Abd is soft and non tender X 4 quads. rv 23:35 Reassessment: Patient and/or family updated on plan of care and expected duration. Pain ea level reassessed. Patient is alert, oriented x 3, equal unlabored respirations, skin warm/dry/pink. Pt admitted to second floor. Report called to receiving nurse. Pt tolerating well. Pt left ED via stretcher, per tech. Pt tolerating well. Vital Signs: 19:40 BP 167 / 76; Pulse 67; Resp 16 S; Temp 97.6(TE); Pulse Ox 95% on R/A; Weight 116.12 kg ca1 (R); Height 5 ft. 10 in. (177.80 cm) (R); Pain 0/10; 20:09 BP 141 / 53 Supine; Pulse 66; ea 20:11 BP 143 / 56 Sitting; Pulse 60; ea 20:13 BP 152 / 86 Standing; Pulse 83; ea 20:30 BP 124 / 59; Pulse 49; Resp 18; Pulse Ox 98% on R/A; ca1 21:13 BP 127 / 45; Pulse 48; Resp 18; Pulse Ox 100% ; ea 22:46 BP 130 / 57; Pulse 37; Resp 16; Pulse Ox 99% ; ea 23:30 BP 134 / 52; Pulse 40; Resp 18; Pulse Ox 98% on R/A; ea 19:40 Body Mass Index 36.73 (116.12 kg, 177.80 cm) ca1 ED Course: 19:17 Patient arrived in ED. am2 19:18 Lonnie Mcgrath MD is Private Physician. am2 19:34 Chinedu Baig MD is Attending Physician. mh7 19:39 Mally Woods, ION is Primary Nurse. ea 19:44 Triage completed. ca1 19:45 Arm band placed on right wrist. ca1 19:52 Patient has correct armband on for positive identification. Placed in gown. Bed in low ea position. Call light in reach. Side rails up X2. 20:00 Inserted saline lock: 20 gauge in right antecubital area, using aseptic technique. rv Blood collected. 20:00 Initial lab(s) drawn, by me, sent to lab. EKG done, by ED staff, reviewed by Chinedu Baig MD. 20:08 XRAY Chest (1 view) In Process Unspecified. EDMS 20:55 CT Head Brain wo Cont In Process Unspecified. EDMS 21:57 Lonnie Mcgrath MD is Hospitalizing Provider. [facility] 22:24 No provider procedures requiring assistance completed. Patient admitted, IV remains in ea place. Administered Medications: 20:04 Drug: Zofran (Ondansetron) 4 mg Route: IVP; Site: right antecubital; ea 21:50 Follow up: Response: No adverse reaction ea Outcome: 21:59 Decision to Hospitalize by Provider. 7 22:24 Instructed on the need for admit, Demonstrated understanding of instructions. ea 23:36 Admitted to Med/surg accompanied by tech, room 202, with chart, Report called to ea Receiving nurse 23:36 Condition: stable 23:38 Patient left the ED. ea Signatures: Dispatcher [employer] EDHI Lissette Yee 2 Mally Woods, Han Ball RN, ea, RN RN rv Caity Gamboa RN RN ca1 Chinedu Baig, MD SEWELL mh7
--- NOTE | 2019-12-03 22:00 | EDPHYS ---
Physician Documentation [facility] Name: Greg Singleton Jr Age: 79 yrs Sex: Male : 1940 Arrival Date: 12/03/2019 Time: 19:17 Bed 4 Private MD: Lonnie Mcgrath V ED Physician Chinedu Baig HPI: 12/02 20:20 This 79 yrs old Male presents to ER via Wheelchair with complaints of mh7 Dizziness, Nausea. 20:20 The patient presents with dizziness, lightheadedness. Onset: The symptoms/episode mh7 began/occurred today. Context: occurred at home, occurred while the patient was standing, just prior to the episode the patient experienced nausea. Modifying factors: The symptoms are alleviated by nothing, the symptoms are aggravated by nothing. Associated signs and symptoms: Pertinent positives: nausea, Pertinent negatives: abdominal pain, agitation, ataxia, blurred vision, chest pain, combativeness, confusion, diaphoresis, focal weakness, head injury, headache, near-syncope, numbness, palpitations, , seizure, shortness of breath, syncope, tingling, vomiting. Severity of symptoms: At their worst the symptoms were moderate today, in the emergency department the symptoms have improved moderately. Patient's baseline: Neuro: alert and fully oriented, Motor: no deficits, Ambulation: walks with assist only, uses cane, Speech: normal. Historical: - Allergies: 19:45 No Known Allergies; ca1 - Home Meds: 19:52 Allopurinol Oral [Active]; losartan oral oral [Active]; pravastatin oral oral [Active]; ca1 - PMHx: 19:45 Hypertension; Diabetes - NIDDM; High Cholesterol; Gout; ca1 - PSHx: 19:45 Appendectomy; ca1 - Immunization history:: Adult Immunizations up to date. - Social history:: Smoking status: Patient denies any tobacco usage or history of. ROS: 20:20 Constitutional: Negative for fever, chills, and weight loss, Eyes: Negative for injury, mh7 pain, redness, and discharge, ENT: Negative for injury, pain, and discharge, Neck: Negative for injury, pain, and swelling, Cardiovascular: Negative for chest pain, palpitations, and edema, Respiratory: Negative for shortness of breath, cough, wheezing, and pleuritic chest pain, Back: Negative for injury and pain, : Negative for injury, bleeding, discharge, and swelling, MS/Extremity: Negative for injury and deformity, Skin: Negative for injury, rash, and discoloration, Psych: Negative for depression, anxiety, suicide ideation, homicidal ideation, and hallucinations, Allergy/Immunology: Negative for hives, rash, and allergies, Endocrine: Negative for neck swelling, polydipsia, polyuria, polyphagia, and marked weight changes, Hematologic/Lymphatic: Negative for swollen nodes, abnormal bleeding, and unusual bruising. Exam: 20:20 Constitutional: This is a well developed, well nourished patient who is awake, alert, mh7 and in no acute distress. Head/Face: Normocephalic, atraumatic. Eyes: Pupils equal round and reactive to light, extra-ocular motions intact. Lids and lashes normal. Conjunctiva and sclera are non-icteric and not injected. Cornea within normal limits. Periorbital areas with no swelling, redness, or edema. ENT: Nares patent. No nasal discharge, no septal abnormalities noted. Tympanic membranes are normal and external auditory canals are clear. Oropharynx with no redness, swelling, or masses, exudates, or evidence of obstruction, uvula midline. Mucous membranes moist. Neck: Trachea midline, no thyromegaly or masses palpated, and no cervical lymphadenopathy. Supple, full range of motion without nuchal rigidity, or vertebral point tenderness. No Meningismus. Chest/axilla: Normal chest wall appearance and motion. Nontender with no deformity. No lesions are appreciated. Cardiovascular: Regular rate and rhythm with a normal S1 and S2. No gallops, murmurs, or rubs. Normal PMI, no JVD. No pulse deficits. Respiratory: Lungs have equal breath sounds bilaterally, clear to auscultation and percussion. No rales, rhonchi or wheezes noted. No increased work of breathing, no retractions or nasal flaring. Abdomen/GI: Soft, non-tender, with normal bowel sounds. No distension or tympany. No guarding or rebound. No evidence of tenderness throughout. Back: No spinal tenderness. No costovertebral tenderness. Full range of motion. Skin: Warm, dry with normal turgor. Normal color with no rashes, no lesions, and no evidence of cellulitis. MS/ Extremity: Pulses equal, no cyanosis. Neurovascular intact. Full, normal range of motion. Neuro: Awake and alert, GCS 15, oriented to person, place, time, and situation. Cranial nerves II-XII grossly intact. Motor strength 5/5 in all extremities. Sensory grossly intact. Cerebellar exam normal. Normal gait. Psych: Awake, alert, with orientation to person, place and time. Behavior, mood, and affect are within normal limits. Vital Signs: 19:40 BP 167 / 76; Pulse 67; Resp 16 S; Temp 97.6(TE); Pulse Ox 95% on R/A; Weight 116.12 kg ca1 (R); Height 5 ft. 10 in. (177.80 cm) (R); Pain 0/10; 20:09 BP 141 / 53 Supine; Pulse 66; ea 20:11 BP 143 / 56 Sitting; Pulse 60; ea 20:13 BP 152 / 86 Standing; Pulse 83; ea 20:30 BP 124 / 59; Pulse 49; Resp 18; Pulse Ox 98% on R/A; ca1 21:13 BP 127 / 45; Pulse 48; Resp 18; Pulse Ox 100% ; ea 22:46 BP 130 / 57; Pulse 37; Resp 16; Pulse Ox 99% ; ea 23:30 BP 134 / 52; Pulse 40; Resp 18; Pulse Ox 98% on R/A; ea 19:40 Body Mass Index 36.73 (116.12 kg, 177.80 cm) ca1 MDM: 19:50 Patient medically screened. mh7 21:56 Differential diagnosis: cardiac arrhythmia, generalized weakness, hypovolemia, mh7 idiopathic dizziness, near-syncope, syncope, TIA, vertigo. Data reviewed: vital signs, nurses notes, lab test result(s), cardiac enzymes, CBC, electrolytes, urinalysis, EKG, radiologic studies, CT scan, plain films. Data interpreted: Pulse oximetry: on room air is 100 %. Interpretation: normal. Counseling: I had a detailed discussion with the patient and/or guardian regarding: the historical points, exam findings, and any diagnostic results supporting the discharge/admit diagnosis, lab results, radiology results, the need for further work-up and treatment in the hospital. Response to treatment: the patient's symptoms have markedly improved after treatment. 12/02 19:52 Order name: Basic Metabolic Panel; Complete Time: 20:33 7 12/02 19:52 Order name: CBC with Diff; Complete Time: 20:33 7 12/02 19:52 Order name: LFT's; Complete Time: 20:33 7 12/02 19:52 Order name: Magnesium; Complete Time: 20:33 7 12/02 19:52 Order name: NT PRO-BNP; Complete Time: 20:33 7 12/02 19:52 Order name: PT-INR; Complete Time: 20:33 [facility] 12/02 19:52 Order name: Troponin (emerg Dept Use Only); Complete Time: 20:33 7 12/02 19:52 Order name: Lipase; Complete Time: 20:33 7 12/02 20:22 Order name: Glucose, Ancillary Testing; Complete Time: 20:33 [facility] 12/02 22:07 Order name: Basic Metabolic Panel [facility] 12/02 22:07 Order name: Basic Metabolic Panel [facility] 12/02 22:07 Order name: CBC with Automated Diff [facility]DC 12/02 22:07 Order name: CBC with Automated Diff [facility] 12/02 22:07 Order name: Troponin I [facility] 12/02 19:52 Order name: XRAY Chest (1 view); Complete Time: 20:37 [facility] 12/02 19:52 Order name: EKG; Complete Time: 19:53 [facility] 12/02 19:52 Order name: Cardiac monitoring; Complete Time: 20:04 [facility] 12/02 19:52 Order name: EKG - Nurse/Tech; Complete Time: 20:04 [facility] 12/02 19:52 Order name: IV Saline Lock; Complete Time: 20:04 [facility] 12/02 20:41 Order name: CT Head Brain wo Cont; Complete Time: 21:11 [facility] 12/02 22:06 Order name: CONS Physician Consult [facility]DC 12/02 22:06 Order name: CONS Physician Consult EDMS 12/02 22:06 Order name: Consistent Carb (ADA) 1800 Jonh EDMS 12/02 22:06 Order name: EKG Electrocardiogram EDMS 12/02 22:06 Order name: EKG Electrocardiogram EDMS 12/02 22:07 Order name: EKG Electrocardiogram EDMS 12/02 22:07 Order name: EKG Electrocardiogram EDMS 12/02 22:07 Order name: Troponin I [facility]DC 12/02 22:07 Order name: Troponin I [facility] 12/02 19:52 Order name: Labs collected and sent; Complete Time: 20:04 [facility] 12/02 19:52 Order name: O2 Per Protocol; Complete Time: 20:04 [facility] 12/02 19:52 Order name: O2 Sat Monitoring; Complete Time: 20:04 [facility] 12/02 19:52 Order name: Orthostatics; Complete Time: 20:18 [facility] 12/02 19:53 Order name: Accucheck Blood Glucose; Complete Time: 20:18 [facility] Administered Medications: 20:04 Drug: Zofran (Ondansetron) 4 mg Route: IVP; Site: right antecubital; ea 21:50 Follow up: Response: No adverse reaction ea Disposition: 12/03/19 21:59 Hospitalization ordered by Lonnie Mcgrath for Observation. Preliminary diagnosis are Dizziness, Atrial Fibrillation with slow ventricular response. - Bed requested for Telemetry/MedSurg (observation). - Status is Observation. ea - Condition is Stable. - Problem is new. - Symptoms have improved. Signatures: Dispatcher [employer] [facility] Jazmine Rush RN RN mw Antunez, Elena, RN RN ea Acob, Cheryl, RN RN ca1 Holmes, Maurice, MD MD [facility] Corrections: (The following items were deleted from the chart) 22:20 21:59 Hospitalization Ordered by Lonnie Mcgrath MD for Observation. Preliminary diagnosis mw is Dizziness; Atrial Fibrillation with slow ventricular response. Bed requested for Telemetry/MedSurg (observation). Status is Observation. Condition is Stable. Problem is new. Symptoms have improved. [facility] 23:38 22:20 12/03/2019 21:59 Hospitalization Ordered by Lonnie Mcgrath MD for Observation. ea Preliminary diagnosis is Dizziness; Atrial Fibrillation with slow ventricular response. Bed requested for Telemetry/MedSurg (observation). Status is Observation. Condition is Stable. Problem is new. Symptoms have improved. mw
[2019-12-03] MEDS ORDERED: ACETAMINOPHEN 500 MG TAB PO PRN (22:02)
[2019-12-03 23:52] VITALS: BMI 37.2
[2019-12-04 04:07] LABS: Absolute Lymphocytes (CBC) 2.7 K/uL (0.7-4.9); Basophils % 0.9 % (0-1.3); Hematocrit 32.7 % (39.6-49.0); Lymphocytes % 39.7 % (15.3-44.8); MPV 8.2 fL (7.6-11.3); RBC Red Blood Cell Count 4.08 M/uL (4.33-5.43)
[2019-12-04 04:13] LABS: Potassium 4.3 mmol/L (3.5-5.1)
[2019-12-04] MEDS ORDERED: VITAMIN D 1000 UNIT TAB PO SCH (09:00)
[2019-12-04] MEDS ORDERED: ASPIRIN 81 MG CHEWABLE TABLET PO SCH (09:00)
[2019-12-04] MEDS ORDERED: LOSARTAN POTASSIUM 50 MG TABLET PO SCH (09:00)
[2019-12-04] MEDS ORDERED: ATORVASTATIN 40 MG TAB PO SCH (09:00)
[2019-12-04] MEDS ORDERED: ASPIRIN EC 81 MG TAB PO SCH (09:00)
[2019-12-04] MEDS ORDERED: allopurinoL 300 MG TAB PO SCH (09:00)
[2019-12-04 09:37] VITALS: O2SAT 97
--- NOTE | 2019-12-04 11:21 | EKG ---
Test Date: 2019-12-03 Test Time: 20:01:54 Cloth Painter: ALEXI MEASUREMENT RESULTS: Intervals: Rate: 55 [place]: QRSD: 94 QT: 458 QTc: 438 [place]: P: W[place]: QRS: 6 T: 42 INTERPRETIVE STATEMENTS: Atrial fibrillation with slow ventricular response with a competing junctional pacemaker Nonspecific ST and T wave abnormality, probably digitalis effect Abnormal ECG Compared to ECG 07/17/2000 16:10:00 ST (T wave) deviation now present Sinus bradycardia no longer present Electronically Signed On 12-04-19 11:20:15 CDT by Terry Sands
[2019-12-04 12:17] VITALS: BP 133/58; TEMP 96.8
--- NOTE | 2019-12-04 13:01 | P.SSS ---
Patient History Date of Service: 12/04/19 Reason for admission: DIZZY , LIGHTHEADED History of Present Illness: MR. LOPEZ HAS HTN. DJD, HISTORY OF BRADYCARDIA, NOW HAS SYMPTOMS OF LIGHTHEADEDNESS, FOUND TO HAVE WENKEBACK BLOCK ON EKG. HE IS COMFORTABLE, ABLE TO GO HOME AND HAVE DR. RAHMAN ARRANGE FOR PPM. Allergies No Known Allergies Allergy (Verified 12/04/19 00:08) Home Medications: Allopurinol 1 tab PO DAILY 12/04/19 Aspirin Chewable [Aspirin Chewable*] 1 tab PO SEECOM 12/04/19 Atorvastatin Calcium [Lipitor] 1 tab PO DAILY 12/04/19 Cholecalciferol (Vitamin D3) [Vitamin D 1000 Iu Tab*] 1 tab PO DAILY 12/04/19 Losartan Potassium 1 tab PO DAILY 12/04/19 - Past Medical/Surgical History Has patient received pneumonia vaccine in the past: Yes Diabetic: Yes -: DM -: Afib -: HTN -: HLD -: gout -: drop foot/left side neuropathy -: Appendectomy -: right testicle removed -: left knee surgery -: left eye retina surgery - Family History Father History Unknown: Yes Mother History Unknown: Yes - Social History Smoking Status: Former smoker Alcohol use: No CD- Drugs: No Caffeine use: Yes Place of Residence: Home Review of Systems 10-point ROS is otherwise unremarkable Physical Examination - Vital Signs Temperature: 96.8 F Blood Pressure: 133/58 Pulse: 40 Respirations: 15 Pulse Ox (%): 99 - Physical Exam General: Alert, In no apparent distress HEENT: Atraumatic, PERRLA, Mucous membr. moist/pink, EOMI, Sclerae nonicteric Neck: Supple, 2+ carotid pulse no bruit, No LAD, Without JVD or thyroid abnormality Respiratory: Clear to auscultation bilaterally, Normal air movement Cardiovascular: Other (BRADYCARDIA.) Gastrointestinal: Normal bowel sounds, No tenderness Musculoskeletal: No tenderness Integumentary: No rashes Neurological: Normal gait, Normal speech, Normal strength at 5/5 x4 extr, Normal tone, Normal affect Lymphatics: No axilla or inguinal lymphadenopathy - Studies Laboratory Data (last 24 hrs) 12/03/19 20:00: PT 12.2, INR 1.03 12/03/19 20:00: WBC 6.9, Hgb 11.5 L, Hct 34.8 L, Plt Count 207 12/03/19 20:00: Sodium 141, Potassium 3.9, BUN 14, Creatinine 1.08, Glucose 207 H, Magnesium 2.2, Total Bilirubin 0.3, AST 17, ALT 21, Alkaline Phosphatase 91, Lipase 90 - Diagnosis (Problem(s)) (1) Second degree AV block Current Visit: Yes Status: Acute Plan: PACEMAKER PLANNED. DR. RAHMAN HAS ARRANGED FOR PPM IN [place]. HE IS STABLE. - Disposition Disposition: ROUTINE DISCHARGE Condition: FAIR Diet: Regular
--- NOTE | 2019-12-04 23:04 | CON ---
Date of Consultation: 12/04/2019 Reason For Consultation: Atrial fibrillation with slow ventricular response. History Of Present Illness: Mr. Singleton is a 79-year-old black male with history of hypertension, diab etes, dyslipidemia, and gout as well as chronic atrial fibrillation, for which he has been seen by Dr Ana Westfall for many years. He is only on aspirin. I am not 100% sure why he is not taking anticoagula tion, but he is only on aspirin. Nevertheless, he came into the emergency room on 12/03/2019 with di zziness, nausea, and presyncope, was found to have atrial fibrillation and rates between 30s and 50s. He denied any actual syncope. Denied any chest pain. Denied any vomiting. He has had some diapho resis. Denied any palpitation. Denied any fever or chills or cough. He does not take any medicatio ns that would lower his heart rate. He is only on losartan, pravastatin, and allopurinol. Allergies: NONE. Review of Systems: Negative. Social History: Negative. Past Medical History: As stated above. Medications: Listed earlier. Review of Systems: Negative. Social History: Negative. Family History: Negative. Physical Examination: Vital Signs: His blood pressure was 130/50, his heart rate was 40, in atrial fibrillation. He was a febrile. HEENT: Negative. Neck: Supple with no bruit. Chest: Clear to auscultation and percussion. Cardiac: Atrial fibrillation. No murmurs, gallops, or rubs. Abdomen: Benign. Extremities: No clubbing, cyanosis, or edema. Diagnostic Data: Fairly unremarkable. His glucose was 131. The rest of it was normal. EKG showed atrial fibrillation. Chest x-ray is negative. Impression And Plan: Atrial fibrillation with low ventricular response causing dizziness, presyncope , and weakness. The patient has had a negative cardiac workup in the office by Dr. Westfall in the pas t, which was unremarkable. I will review his records and more details in the office as to why he is not taking any anticoagulants. The case was discussed with Dr. Mcgrath. I will refer the patient to Britni Moran for a pacemaker placement in the near future. NB/MODL Voice ID: [id number] Report ID: [id number]
== END 2019-12-04 15:47 | disposition home or self-care (01) ==
LOC: ER 19:08 → ERHOLD 22:01 → 2ND 23:29
PROVIDERS: ADMIT Internal Medicine; ATTEND Internal Medicine
DX: I44.1 Atrioventricular block, second degree (principal); I48.20 Chronic atrial fibrillation, unspecified; R00.1 Bradycardia, unspecified; I48.91 Unspecified atrial fibrillation; I10 Essential (primary) hypertension; E11.9 Type 2 diabetes mellitus without complications; E78.5 Hyperlipidemia, unspecified; E78.00 Pure hypercholesterolemia, unspecified; M10.9 Gout, unspecified; M19.90 Unspecified osteoarthritis, unspecified site; Z20.828 Contact with and (suspected) exposure to other viral communicable diseases; Z87.891 Personal history of nicotine dependence; Z79.82 Long term (current) use of aspirin
CPT/HCPCS: 93005 ×3; 85025 ×2; 80048 ×2; 36415; 83735; 85610; 82947 ×3; 80076; 84484 ×3; 83690; 83880; 70450; 71045; 96374; 99285; U0002; J2405; G0378 ×2